=== PATIENT | female | born 1950 | race Caucasian/White ===

== ENCOUNTER → 2016-10-28 | Outpatient (CLI) | payer OTHER | LOC: BMCIMAGING 13:06 | PROVIDERS: ATTEND Internal Medicine | DX: R07.9 Chest pain, unspecified (principal) ==

== ENCOUNTER → 2016-12-23 | Outpatient (CLI) | payer OTHER | LOC: BMCIMAGING 10:44 | PROVIDERS: ATTEND Nurse Practitioner Adult Health | DX: Z12.31 Encounter for screening mammogram for malignant neoplasm of breast (principal); Z80.3 Family history of malignant neoplasm of breast | CPT/HCPCS: G0202 ==

== ENCOUNTER → 2016-12-27 | Outpatient (CLI) | payer OTHER | LOC: BMCIMAGING 09:58 | DX: Z12.39 Encounter for other screening for malignant neoplasm of breast (principal); R92.2 Inconclusive mammogram; Z80.3 Family history of malignant neoplasm of breast | CPT/HCPCS: G0206 ==

== ENCOUNTER 2017-10-30 11:05 | Emergency (ER) | payer OTHER ==
[2017-10-30 11:12] VITALS: TEMP 97.9
--- NOTE | 2017-10-30 12:14 | EDPHY ---
H & P Time Seen by Provider: 10/30/17 12:14 HPI/ROS: Chief complaint. Nausea, weight loss, kidney failure HPI. Patient is a 67-year-old female with known end-stage renal disease. 3 days ago she went on a hike and had some nausea vomiting. She has had decreased oral intake for the past 3 days. She has no diarrhea. No abdominal pain. No fever. No urinary symptoms. Her 2 months ago and she is in the grieving process. She is in line for kidney transplant and has apparently a donor meeting tomorrow as they have found a donor. She was sent by her intelligent systems engineer for IV hydration. The patient would like to receive some IV fluids and then go home as soon as possible as being in the hospital respect bad memories of her dying 2 months ago. ROS Constitutional. no fever/chills, no weakness Eyes. no problems with vision ENT. no sore throat, no nasal drainage Cardiovascular. no chest pain Respiratory. no shortness of breath, no cough Abdominal. Nausea and vomiting and decreased appetite . no problems urinating MS. no calf pain/swelling, no neck/back pain, no joint pain Skin. no rash Lymph. no swollen glands Neuro. no headache, no dizziness, no difficulty walking or with speech Past Medical/Surgical History: Renal failure Social History: , nonsmoker, no alcohol Smoking Status: Never smoked Physical Exam: General Appearance: Alert pleasant well-developed female mild distress vital signs are stable Eyes: Pupils equal and round no pallor or injection. ENT, Mouth: Mucous membranes are dry. Respiratory: There are no retractions, lungs are clear to auscultation. Cardiovascular: Regular rate and rhythm. Gastrointestinal: Abdomen is soft and nontender, no masses, bowel sounds normal. Neurological: Awake and alert, sensory and motor exams grossly normal. Skin: Warm and dry, no rashes. Musculoskeletal: Neck is supple nontender. Extremities symmetrical, full range of motion. Psychiatric: Patient is oriented X 3, there is no agitation. Constitutional: Initial Vital Signs Temperature (C) 36.6 C 10/30/17 11:11 Heart Rate 74 10/30/17 11:11 Respiratory Rate 17 10/30/17 11:11 Blood Pressure 139/80 H 10/30/17 11:11 O2 Sat (%) 99 10/30/17 11:11 O2 Delivery Mode Room Air Allergies/Adverse Reactions: lisinopril Allergy (Verified 06/10/13 14:44) Home Medications: Medication Instructions Recorded Amlodipine Besylate 06/10/13 Lasix 06/10/13 Zoloft 06/10/13 RENVELA 10/30/17 Sensipar 10/30/17 Sertraline HCl 10/30/17 traZODone 10/30/17 Medical Decision Making Procedures: IV normal saline. Patient declines Zofran ED Course/Re-evaluation: I consulted discussed case with Dr. Wynne, nephrology. She recommends 1 L Of saline and discharge. I discussed laboratory evaluation with the patient. We discussed treatment plan including criteria for return importance of follow- up and further evaluation. She expresses understanding and agreement She is taking oral fluids and food in the emergency department. Differential Diagnosis: Mild dehydration in a patient with end-stage renal disease. In consultation with Nephrology and discussion of her lab work they are comfortable with IV hydration and discharged - Data Points Laboratory Results: Laboratory Results 10/30/17 12:10 10/30/17 12:10 10/30/17 10/30/17 10/30/17 12:10 12:10 12:10 WBC 4.24 10^3/uL 10^3/uL (3.80-9.50) RBC 3.41 10^6/uL L 10^6/uL (4.18-5.33) Hgb 11.2 g/dL L g/dL (12.6-16.3) Hct 33.4 % L % (38.0-47.0) MCV 97.9 fL fL (81.5-99.8) MCH 32.8 pg pg (27.9-34.1) MCHC 33.5 g/dL g/dL (32.4-36.7) RDW 12.9 % % (11.5-15.2) Plt Count 198 10^3/uL 10^3/uL (150-400) MPV 10.2 fL fL (8.7-11.7) Neut % (Auto) 58.3 % % (39.3-74.2) Lymph % (Auto) 29.0 % % (15.0-45.0) Mchenry % (Auto) 8.7 % % (4.5-13.0) Eos % (Auto) 1.9 % % (0.6-7.6) Baso % (Auto) 1.9 % H % (0.3-1.7) Nucleat RBC Rel Count 0.0 % % (0.0-0.2) Absolute Neuts (auto) 2.47 10^3/uL 10^3/uL (1.70-6.50) Absolute Lymphs (auto) 1.23 10^3/uL 10^3/uL (1.00-3.00) Absolute Monos (auto) 0.37 10^3/uL 10^3/uL (0.30-0.80) Absolute Eos (auto) 0.08 10^3/uL 10^3/uL (0.03-0.40) Absolute Basos (auto) 0.08 10^3/uL 10^3/uL (0.02-0.10) Absolute Nucleated RBC 0.00 10^3/uL 10^3/uL (0-0.01) Immature Gran % 0.2 % % (0.0-1.1) Immature Gran # 0.01 10^3/uL 10^3/uL (0.00-0.10) Sodium 140 mEq/L mEq/L (135-145) Potassium 3.9 mEq/L mEq/L (3.5-5.2) Chloride 107 mEq/L mEq/L (97-110) Carbon Dioxide 18 mEq/l L mEq/l (22-31) Anion Gap 15 mEq/L mEq/L (8-16) BUN 62 mg/dL H mg/dL (7-23) Creatinine 3.4 mg/dL H mg/dL (0.6-1.0) Estimated GFR 13 Glucose 86 mg/dL mg/dL (70-100) Calcium 9.8 mg/dL mg/dL (8.5-10.4) Urine Color YELLOW Urine Appearance CLEAR Urine pH 5.0 (5.0-7.5) Ur Specific Shidler 1.011 (1.002-1.030) Urine Protein 2+ H (NEGATIVE) Urine Ketones NEGATIVE (NEGATIVE) Urine Blood NEGATIVE (NEGATIVE) Urine Nitrate NEGATIVE (NEGATIVE) Urine Bilirubin NEGATIVE (NEGATIVE) Urine Urobilinogen NEGATIVE EU EU (0.2-1.0) Ur Leukocyte Esterase NEGATIVE (NEGATIVE) Urine RBC NONE SEEN /hpf /hpf (0-3) Urine WBC 1-3 /hpf /hpf (0-3) Ur Epithelial Cells TRACE /lpf /lpf (NONE-1+) Urine Mucus TRACE /lpf /lpf (NONE-1+) Urine Glucose NEGATIVE (NEGATIVE) Medications Given: Discontinued Medications Sodium Chloride (Ns) 1,000 mls @ 0 mls/hr IV EDNOW ONE; Wide Open PRN Reason: Protocol Stop: 10/30/17 13:06 Last Admin: 10/30/17 13:14 Dose: 1,000 mls Sodium Chloride (Ns) 1,000 mls @ 0 mls/hr IV EDNOW ONE; Wide Open PRN Reason: Protocol Stop: 10/30/17 13:06 Last Admin: 10/30/17 13:14 Dose: 1,000 mls Departure - Departure Disposition: Home, Routine, Self-Care Clinical Impression: Dehydration Chronic renal failure Qualifiers: Chronic kidney disease stage: unspecified stage Qualified Code(s): N18.9 - Chronic kidney disease, unspecified Condition: Good Instructions: Dehydration (ED) Additional Instructions: Frequent, small sips fluids. Gradual diet advancement. Return for worsening symptoms. Follow up Dr. Esparza if not improving in the next 1-2 days Referrals: LAYO RODRIGUEZ [Other] - As per Instructions Dedrick Esparza MD [Medical Doctor] - 1 day, if not improved
[2017-10-30 12:26] LABS: PLATELET COUNT 198 10^3/uL (150-400)
[2017-10-30] MEDS ORDERED: NS 1,000 ML IV ONE ×2 (13:05)
[2017-10-30 14:46] VITALS: BP 133/75; PULSE 75; RESP 16; O2SAT 98
== END 2017-10-30 14:46 | disposition home or self-care (01) ==
DX: E86.0 Dehydration (principal); N18.9 Chronic kidney disease, unspecified; E86.9 Volume depletion, unspecified

== ENCOUNTER → 2018-12-17 | Outpatient (CLI) | payer OTHER | LOC: BMCIMAGING 09:33 | PROVIDERS: ATTEND Nurse Practitioner Adult Health | DX: M51.36 Other intervertebral disc degeneration, lumbar region (principal); M51.37 Other intervertebral disc degeneration, lumbosacral region; M46.96 Unspecified inflammatory spondylopathy, lumbar region; M46.97 Unspecified inflammatory spondylopathy, lumbosacral region ==